=== PATIENT | female | born 1990 | race Caucasian/White ===

== ENCOUNTER 2018-07-10 15:49 | Inpatient (IN) | payer OTHER ==
[2018-07-10 17:20] VITALS: BMI 28.8
[2018-07-10] MEDS ORDERED: Betamethasone Soluspan 30 mg/5mL Inj Susp IM ONE (17:20)
[2018-07-10 20:13] VITALS: O2SAT 98
[2018-07-10 20:39] LABS: BASO % 0.6 % (0.0-2.0); EOS % 0.4 % (0.0-4.0); HEMOGLOBIN 11.1 g/dL (12.0-16.0); LYMPH # 1.1 K/uL (1.0-4.3); LYMPH % 13.8 % (20.0-40.0); MEAN CELL VOLUME 85.8 fl (81.0-99.0); MEAN CORPUSCULAR HGB CONC 33.8 g/dL (33.0-37.0); MEAN PLATELET VOLUME 8.7 fl (7.2-11.7); MONO # 0.5 K/uL (0.0-0.8); MONO % 6.5 % (0.0-10.0); NEUT # 6.4 K/uL (1.8-7.0); NEUT % 78.7 % (50.0-75.0); NRBC % 0.1 % (0.0-0.0); RBC 3.84 Mil/uL (3.80-5.20); RED CELL DISTRIBUTION WIDTH 28.1 % (11.5-14.5); WHITE BLOOD COUNT 8.1 K/uL (4.8-10.8)
--- NOTE | 2018-07-11 07:20 | OBHP ---
Datetime: 07/10/2018 18:45 IP Admit Plan: Admit to unit Pelvic Type - PN: Not Done Extremities - PN: Normal Abdomen - PN: Normal Back - PN: Normal Breast - PN: Not Done Lungs - PN: Normal Heart - PN: Normal Thyroid - PN: Not Done Neurologic - PN: Not Done HEENT - PN: Not Done General - PN: Normal FHR - Baseline A Provider: 145 Contraction Comments Provider: none Gestation - Est Wks by US: 35.3 IP Hx Assessment: The History has been Reviewed and is Current EGA AdmitDate IP: 35.3 Vital Signs Provider: Reviewed IP Indication for Induction: IUGR IP Chief Complaint: Other NICHD Variability Prov Fetus A: Moderate 6-25bpm Dilatation, Provider: 0 Genitourinary Exam: Not Done DTRs - PN: Not Done Datetime: 07/10/2018 17:00 IP Adm Impression: , intrauterine ; No Active Labor; Intact Membranes Admit Comment, IP Provider: 27 y/o female at 35.3 wk GA, twin via IVF sent to [facility] by Dr. Mansfield for beta-methasone INJ as patient is scheduled for at 36 wk GA. Patient denies V B, VFL, abdominal pain. Endorses movements. OB: Dr. Papa Mansfield Obhx: miscarriage 2013 Pmhx: denies HomeRx: care Allergies: NKDA SocHx: denies toxic habits SurgHx: denies Famhx: MOther w/ DM ROS: all systems reviewed and negative except per HPI Physical exam: Gen: sitting up comfortably in bed, no acute distress Heart: S1 S2 present, RRR Lungs: normal resp effort, clear to auscultation bilaterally Abd: gravid, normal BS, soft, non-tender Extremities: no swelling/erythema/tenderness Assessment and Plan 27 y/o female at 35.3 wk GA, twin via IVF scheduled for at 36 wk GA due to poor growth Betamethasone 12mg IM x 1 now, patient will come back in 24 hours for second dose. NST reactive w/ mod variability. [place] shows no contractions Case discussed w/ attending, Dr. Avery Martell, pgyi OB Hospitalist note. Pt seen and examined with PGY 1 ... Agree with PGY1 note MARIZOL DENNEY Decel Fetus A IP Provider: None
[2018-07-11 13:17] LABS: HEMOGLOBIN 10.9 g/dL (12.0-16.0); MEAN CELL VOLUME 84.8 fl (81.0-99.0); MEAN CORPUSCULAR HEMOGLOBIN 29.4 pg (27.0-31.0); MEAN CORPUSCULAR HGB CONC 34.7 g/dL (33.0-37.0); RBC 3.71 Mil/uL (3.80-5.20); RED CELL DISTRIBUTION WIDTH 27.7 % (11.5-14.5); WHITE BLOOD COUNT 9.6 K/uL (4.8-10.8)
[2018-07-11 13:30] LABS: ALB/GLOB RATIO 1.1 (1.0-2.1); ALBUMIN 3.5 g/dL (3.5-5.0); ALT/SGPT 19 U/L (9-52); AST/SGOT 20 U/L (14-36); BLOOD UREA NITROGEN 3 mg/dl (7-17); CALCIUM 8.7 mg/dL (8.4-10.2); GFR NON-AFRICAN AMERICAN > 60
[2018-07-11] MEDS ORDERED: Betamethasone Soluspan 30 mg/5mL Inj Susp IM ONE (18:00)
[2018-07-11 21:57] LABS: RAPID PLASMA REAGIN NONREACTIVE (NONREACTIVE)
--- NOTE | 2018-07-11 22:21 | OBDS ---
MATERNAL INFORMATION Provider Comments: See operative report LABOR SUMMARY EDC: 08/11/2018 00:00 No. Babies in Womb: 2
--- NOTE | 2018-07-11 22:37 | OBPPN ---
Datetime: 07/11/2018 22:16 PP Progress Note Prov: Patient noted to have category 2 tracing remote from delivery intrauterine pr essure catheter inserted amnioinfusion performed internal scalp electrode placed. Patient was counse led regarding the risks benefits and alternatives to the surgery and patient agreed to plan of care
[2018-07-12] MEDS: Lactated Ringer's 1,000 ML IV SCH ×5 (06:00→15:10)
[2018-07-12] MEDS ORDERED: ceFAZolin 2 GM in Sodium Chloride 0.9% 100 ML IVPB ONE (06:28)
[2018-07-12] MEDS ORDERED: Oxytocin 30 UNIT in NS 500 ml 30 UNITS/500 ML BAG IV ONE (06:40)
[2018-07-12 06:42] LABS: BASO % 0.1 % (0.0-2.0); LYMPH # 1.6 K/uL (1.0-4.3); LYMPH % 17.6 % (20.0-40.0); MEAN CORPUSCULAR HEMOGLOBIN 29.2 pg (27.0-31.0); MEAN CORPUSCULAR HGB CONC 34.3 g/dL (33.0-37.0); MONO # 0.9 K/uL (0.0-0.8); MONO % 9.3 % (0.0-10.0); NEUT # 6.7 K/uL (1.8-7.0); NRBC % 0.2 % (0.0-0.0); PLATELET COUNT 227 K/uL (130-400); RBC 3.77 Mil/uL (3.80-5.20); RED CELL DISTRIBUTION WIDTH 27.6 % (11.5-14.5); WHITE BLOOD COUNT 9.2 K/uL (4.8-10.8)
--- NOTE | 2018-07-12 09:03 | OBADHP ---
Datetime: 07/12/2018 09:02 Presentation-Admit: Transverse FHR - Baseline A Provider: 125 Membranes, Provider: Intact Gestation - Est Wks by US: 35.5 NICHD Variability Prov Fetus A: Moderate 6-25bpm FHR Category Provider Fetus A: Category I NICHD Decel Fetus A IP Provider: None Dilatation, Provider: 0 Datetime: 07/10/2018 18:45 Pelvic Type - PN: Not Done Extremities - PN: Normal Abdomen - PN: Normal Back - PN: Normal Breast - PN: Not Done Lungs - PN: Normal Heart - PN: Normal Thyroid - PN: Not Done Neurologic - PN: Not Done HEENT - PN: Not Done General - PN: Normal Contraction Comments Provider: none IP Hx Assessment: The History has been Reviewed and is Current Vital Signs Provider: Reviewed IP Chief Complaint: Other Genitourinary Exam: Not Done DTRs - PN: Not Done EGA AdmitDate IP: 35.3 IP Admit Plan: Admit to unit Datetime: 07/10/2018 17:00 Admit Comment, IP Provider: 27 y/o female at 35.3 wk GA, twin via IVF sent to [facility] by Dr. Mansfield for beta-methasone INJ as patient is scheduled for at 36 wk GA. Patient denies V B, VFL, abdominal pain. Endorses movements. pt seen by mf with arrest of growth complicated iugr, advised for steriods adn delivery OB: Dr. Papa Mansfield Obhx: miscarriage 2013 Pmhx: denies HomeRx: care Allergies: NKDA SocHx: denies toxic habits SurgHx: denies Famhx: MOther w/ DM ROS: all systems reviewed and negative except per HPI Physical exam: Gen: sitting up comfortably in bed, no acute distress Heart: S1 S2 present, RRR Lungs: normal resp effort, clear to auscultation bilaterally Abd: gravid, normal BS, soft, non-tender Extremities: no swelling/erythema/tenderness Assessment and Plan 27 y/o female at 35.3 wk GA, twin via IVF scheduled for at 36 wk GA due to poor growth Betamethasone 12mg IM x 1 now, patient will come back in 24 hours for second dose. NST reactive w/ mod variability. [place] shows no contractions Case discussed w/ attending, Dr. Avery Martell, pgyi OB Hospitalist note. Pt seen and examined with PGY 1 ... Agree with PGY1 note MAHNDO IP Adm Impression: , intrauterine ; No Active Labor; Intact Membranes
--- NOTE | 2018-07-12 09:04 | OBPN ---
Datetime: 07/12/2018 09:02 IP Informed Consent Obtain: Section Delivery IP Progress Plan: Deliver- Section Membranes, Provider: Intact FHR - Baseline A Provider: 125 Gestation - Est Wks by US: 35.5 Presentation-Admit: Transverse FHR Category Provider Fetus A: Category I NICHD Variability Prov Fetus A: Moderate 6-25bpm Dilatation, Provider: 0 NICHD Decel Fetus A IP Provider: None Datetime: 07/12/2018 09:01 IP Progress Note Comment: delayed entry from 07/11 pt seen adn emxaiend admitted for di/di twins for celstoen and deivery 07/12 denies lof, vb, ctx, +FM x 2 vs se above Pe see above a/p @ 35+ wks di/di twins with compicated iugr celesteo x 2 today deivery tomrorow Datetime: 07/10/2018 18:45 Contraction Comments Provider: none Vital Signs Provider: Reviewed
--- NOTE | 2018-07-12 09:06 | OBPN ---
Datetime: 07/12/2018 09:02 IP Progress Note Comment: ptseen and examiend with no compliants denies lof, vb, ctx, +FM x 2 vS pe gen nad aaax ox 3 reps ctabl cvs rrr, +S1/S2 abd: soft, nt, fndal hgithe 33cm +FHR x 2 a/p @ 35+ wks di/di ivf pregancn with complicated igur s/p nicho on x2 for deilvery as per mfm ltcs dw paeitn consent obtained
[2018-07-12 09:12] LABS: BANDS 2 % (0-2); LYMPHOCYTE 6 % (20-50); MONOCYTE 11 % (0-10); MYELOCYTE 1 % (0-0); NEUTROPHIL 80 % (42-75); PLATELET ESTIMATE NORMAL (NORMAL); TOTAL CELLS COUNTED 100
[2018-07-12 09:13] LABS: ANISOCYTOSIS SLIGHT
[2018-07-12 09:14] LABS: LARGE PLATELETS PRESENT; OVALOCYTES SLIGHT; POIKILOCYTOSIS SLIGHT; SPHEROCYTES SLIGHT
[2018-07-12] MEDS ORDERED: Morphine 5 mg/10 ml preservative-free Inj(Duramorph) ONE (09:15)
[2018-07-12] MEDS: OXYTOCIN/0.9 % NS 20 UNIT/1,000 ML BAG IV SCH ×2 (10:02→15:11)
--- NOTE | 2018-07-12 10:08 | OBDS ---
Provider Comments: pltcs transfer x 2 baby a 4lb 4 ounces apgars 9,9 baby by 4lb 5 ounces apgars 99, ebl 800ml normal ppearing ueir, tubes and ovaries b/l Birthweight (gms): 1950 Infant Weight (lb): 4 Infant Weight (oz): 5
[2018-07-12] MEDS ORDERED: Oxycodone/Acetaminophen 5/325 mg Tab PO PRN ×3 (10:36→15:54)
[2018-07-12 12:40] LABS: HEPATITIS B SURFACE AG Negative (NEGATIVE)
[2018-07-13] MEDS: Lactated Ringer's 1,000 ML IV SCH ×2 (00:17→09:44)
[2018-07-13 05:35] LABS: HEMOGLOBIN 8.5 g/dL (12.0-16.0); MEAN CELL VOLUME 87.5 fl (81.0-99.0); MEAN CORPUSCULAR HEMOGLOBIN 29.5 pg (27.0-31.0); MEAN CORPUSCULAR HGB CONC 33.7 g/dL (33.0-37.0); RBC 2.88 Mil/uL (3.80-5.20); RED CELL DISTRIBUTION WIDTH 28.3 % (11.5-14.5); WHITE BLOOD COUNT 12.1 K/uL (4.8-10.8)
[2018-07-13] MEDS: Multivitamin With Minerals Tab PO SCH (08:30)
[2018-07-13] MEDS: Oxycodone/Acetaminophen 5/325 mg Tab PO PRN ×2 (08:30→21:27)
[2018-07-13] MEDS ORDERED: Multivitamin With Minerals Tab PO SCH (09:00)
--- NOTE | 2018-07-13 20:14 | OBPPN ---
Datetime: 07/13/2018 20:11 PP Pain Prov: Within normal limits PP Nausea Prov: Denies PP Flatus Prov: Yes PP BM Prov: No PP Breasts Prov: Normal PP Heart Prov: Normal PP Lungs Prov: Normal PP Abdomen/Uterus Prov: Normal PP Lochia Prov: Normal PP Vulva/Perineum Prov: Normal PP CVA Tenderness Prov: Normal PP Extremities Prov: Normal PP C/S Incision Prov: Normal PP Progress Prov: Normal PP Impression Prov: Normal progression PP Plan Prov: Continue present management PP Progress Note Prov: pt seen and examien jennifer angelorts pain over incicsion site somethwat contolled with medcaion. pt is ambaitnb, passign flatus, urinating. pt is breast feeding. denies any fever, ch ills, nasue, voiting cp, sob, dizyznees, lightheadd, VSS PE see above IINCIO C/D/I healing well no uteirne tendnere moderatel lohcai, non foul smelling a/p s/p PLTCS POD #1 wiath acute asyomatic blood loss anemia, currenlty stable pain managment dc meyer encouarge ambation ela regimen iron/coalce encouarge breast feeding am cbc Vital Signs Provider PP: Reviewed; Within Normal Limits Datetime: 07/11/2018 22:16 IP PP Procedures: None
[2018-07-14 07:24] LABS: BASO % 0.3 % (0.0-2.0); EOS % 0.3 % (0.0-4.0); HEMOGLOBIN 10.3 g/dL (12.0-16.0); LYMPH # 2.6 K/uL (1.0-4.3); LYMPH % 22.3 % (20.0-40.0); MEAN CORPUSCULAR HEMOGLOBIN 29.6 pg (27.0-31.0); MEAN PLATELET VOLUME 8.5 fl (7.2-11.7); MONO # 1.3 K/uL (0.0-0.8); MONO % 11.2 % (0.0-10.0); NEUT # 7.6 K/uL (1.8-7.0); NEUT % 65.9 % (50.0-75.0); NRBC % 0.2 % (0.0-0.0); RBC 3.47 Mil/uL (3.80-5.20); RED CELL DISTRIBUTION WIDTH 27.6 % (11.5-14.5); WHITE BLOOD COUNT 11.6 K/uL (4.8-10.8)
[2018-07-14] MEDS: Multivitamin With Minerals Tab PO SCH (09:45)
[2018-07-14] MEDS: Oxycodone/Acetaminophen 5/325 mg Tab PO PRN (09:45)
--- NOTE | 2018-07-14 13:02 | OBPPN ---
Datetime: 07/14/2018 12:58 PP Pain Prov: Within normal limits PP Nausea Prov: Denies PP Flatus Prov: Yes PP BM Prov: Yes PP Abdomen/Uterus Prov: Normal PP Lochia Prov: Normal PP Extremities Prov: Normal PP Comments Phys Exam Prov: Incision w/ steri strips PP Impression Prov: Normal progression PP Plan Prov: Continue present management PP Progress Note Prov: POD 2 s/p primary section for twin gestation, doing well, breast pum ping Pt c/o right shoulder pain Pt encouraged to ambulate Vital Signs Provider PP: Reviewed
--- NOTE | 2018-07-15 07:57 | OBDCSUM ---
Datetime: 07/10/2018 19:47 Discharged to, Provider: Home Follow up at, Provider: Dr. Mansfield Discharge Instructions, Provider: Routine instructions given Discharge Diagnosis, Provider: Postterm Delivery Discharge Time: 07/15/2018 07:56 Follow up in weeks, Provider: 1 week
--- NOTE | 2018-07-15 07:57 | OBPPN ---
Datetime: 07/15/2018 07:53 PP Pain Prov: Within normal limits PP Nausea Prov: Denies PP Flatus Prov: Yes PP BM Prov: Yes PP Abdomen/Uterus Prov: Normal PP Lochia Prov: Normal PP Extremities Prov: Normal PP C/S Incision Prov: Normal PP Progress Prov: Not Applicable PP Comments Phys Exam Prov: Incision w/ steri strips PP Impression Prov: Normal progression PP Plan Prov: Discharge PP Progress Note Prov: POD 3 s/p primary cesaren section for twins, doing well, formula feeding Rx's motrin and perocet to be given to the pt Discharge home today Vital Signs Provider PP: Reviewed
[2018-07-15] MEDS: Multivitamin With Minerals Tab PO SCH (08:10)
[2018-07-15] MEDS ORDERED: Measles, Mumps, and Rubella 0.5 ML VIAL SC ONE (09:22)
[2018-07-15 20:51] VITALS: BP 119/77; PULSE 66; RESP 18; TEMP 97.3
--- NOTE | 2018-07-18 02:45 | OP ---
PROCEDURE DATE: 07/12/2018 SURGEON: Lenore Mansfield MD CHEF'S ASSISTANT: Brenden Tejada MD ANESTHESIA: Spinal. PREOPERATIVE DIAGNOSES: intrauterine , arrest of growth, and intrauterine growth retardation complicated. POSTOPERATIVE DIAGNOSES: 35 plus weeks' intrauterine dichorionic-diamniotic , arrest of growth, and intrauterine growth retardation complicated. PROCEDURE PERFORMED: Primary low-transverse section. ESTIMATED BLOOD LOSS: 100 mL. OPERATIVE FINDINGS: Two live female infants, transverse presentation. Baby A and B. Apgars 9 and 9. Weight 4 pounds 4 ounces and [address] Brenden Tejada, the surgical instrument repair specialist, was present for the entire case and was essential in gaining entry, retraction, exposure, helping to deliver both babies, closing all layers, obtaining hemostasis, and present for the entire case. SPECIMEN SENT TO PATHOLOGY: Placenta. DESCRIPTION OF THE PROCEDURE: The patient was taken to the operating room where she was given spinal anesthesia. Once it was found to be adequate, she was placed on the operating room table in dorsal supine position. The patient was prepped and draped in the usual sterile fashion. A time-out was confirmed correct patient and correct procedure. A Pfannenstiel skin incision was made with a scalpel and carried down to the underlying layer of the fascia with the Bovie. The fascia was incised in the midline and extended laterally with Bovie. The inferior aspect of the fascial incision was grasped with Allis and Sami clamps, and the underlying rectus muscles were dissected off bluntly. Attention was then turned to the superior aspect of the incision in a similar fashion. It was grasped with Allis and Sami clamps, and the underlying rectus muscles were dissected off bluntly. The rectus muscles were then bluntly in the midline. The peritoneum was identified and entered in clear space. The incision was extended laterally and superiorly until there was good visualization of the bladder. The lower end of the [place] was then inserted. The vesicouterine peritoneum was incised with Metzenbaum scissors. A bladder flap was created digitally. The lower end of the [place] was then re-inserted. The lower uterine segment was incised with a scalpel and extended laterally with bandage scissors. The surgeon's hand entered into the uterine cavity. Baby A was noted to be transverse and was delivered in a breech presentation after amniotic membranes were noted. The umbilical cord was clamped and cut. The Baby was handed off to the awaiting physical anthropologist. Baby B was then delivered in the cephalic presentation after the amniotic membranes were ruptured. Umbilical cord was clamped and cut. Baby was handed off to the awaiting physical anthropologist. Cord blood and cord gases were collected and sent x2 on both babies. Both placentas were then delivered manually. The uterus was cleared of all clots and debris. The uterine incision was repaired with a 0-Vicryl in a running continuous locked fashion. A second layer of same suture was used to close the uterus in a running imbricating manner. There was good hemostasis at the uterine incision site. There were normal tubes and ovaries. The uterus was then returned to the abdomen. Pericolic gutters were cleared of all clots and debris. There was good hemostasis at the uterine incision site. The peritoneum was reapproximated and closed with a 2-0 chromic in a running continuous fashion. The rectus was reapproximated with a 2-0 chromic in an interrupted manner. The fascia was reapproximated and closed with 0-Vicryl in a running continuous fashion. The skin was reapproximated and closed with a 4-0 Monocryl in a running subcuticular fashion. At the end of the procedure, all needle, sponge, and instrument counts were noted to be correct x2. The patient tolerated the procedure well and was transferred to the recovery room in stable condition. Lenore Mansfield MD
== END 2018-07-15 16:22 | disposition home or self-care (01) | DRG 787 ==
LOC: H.EROB2 15:49 → H.L&D 18:32 → H.OB/GYN 21:41 → H.L&D 07-11 18:45 → H.OB/GYN 07-12 12:37
PROVIDERS: ADMIT Obstetrics & Gynecology; ATTEND Obstetrics & Gynecology
PROC: 4A1HXCZ Monitoring of Products of Conception, Cardiac Rate, External Approach (ICD-10-PCS; 2018-07-10)
PROC: 10D00Z1 Extraction of Products of Conception, Low, Open Approach (ICD-10-PCS; principal; 2018-07-12)
DX: O60.14X2 Preterm labor third trimester with preterm delivery third trimester, fetus 2 (principal); D62 Acute posthemorrhagic anemia; O36.5932 Maternal care for other known or suspected poor fetal growth, third trimester, fetus 2; O30.043 Twin pregnancy, dichorionic/diamniotic, third trimester; O90.81 Anemia of the puerperium; O32.2XX0 Maternal care for transverse and oblique lie, not applicable or unspecified; Z3A.35 35 weeks gestation of pregnancy; Z37.2 Twins, both liveborn